=== PATIENT | male | born 1965 ===

== ENCOUNTER 2017-03-05 14:40 | Emergency (ER) | payer OTHER ==
[2017-03-05 14:45] VITALS: BMI 31.3
[2017-03-05 14:56] VITALS: TEMP 98.1
[2017-03-05 16:23] VITALS: BP 145/79
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
[2017-03-05 16:41] VITALS: PULSE 80; RESP 16; O2SAT 99
== END 2017-03-05 16:41 | disposition home or self-care (01) ==
LOC: ED 14:40
DX: T65.891A Toxic effect of other specified substances, accidental (unintentional), initial encounter (principal); T21.46XA Corrosion of unspecified degree of male genital region, initial encounter; Y93.89 Activity, other specified; Y92.89 Other specified places as the place of occurrence of the external cause

== ENCOUNTER 2018-06-30 22:05 | Emergency (ER) | payer SELFPAY ==
[2018-06-30 22:06] VITALS: BMI 31.3
[2018-06-30] MEDS ORDERED: Sodium Chloride 0.9% 1,000 ML IV STA (22:56)
[2018-06-30 22:57] VITALS: RESP 18
[2018-07-01 00:12] LABS: BASO # 0.06 K/mm3 (0.0-2.0); BASO % 0.7 % (0.0-3.0); EOS # 0.5 (0.0-0.7); EOS % 6.2 % (1.5-5.0); GRAN # 4.58 (1.4-6.5); GRAN % 52.9 % (50.0-68.0); HEMOGLOBIN 14.6 g/dL (14.0-18.0); LYMPH # 2.8 (1.2-3.4); LYMPH % 32.8 % (22.0-35.0); MEAN CELL VOLUME 87.4 fl (80.0-105.0); MEAN CORPUSCULAR HEMOGLOBIN 30.2 pg (25.0-35.0); MEAN CORPUSCULAR HGB CONC 34.6 g/dl (31.0-37.0); MEAN PLATELET VOLUME 11.2 fl (7.0-11.0); MONO # 0.6 (0.1-0.6); MONO % 7.4 % (1.0-6.0); RBC 4.83 10^6/uL (3.5-6.1); RED CELL DISTRIBUTION WIDTH 12.8 % (11.5-14.5); WHITE BLOOD COUNT 8.7 10^3/ul (4.5-11.0)
[2018-07-01 01:25] LABS: ALB/GLOB RATIO 1.2 (1.1-1.8); ALBUMIN 3.5 g/dL (3.0-4.8); BLOOD UREA NITROGEN 13 mg/dL (7-21); CALCIUM 8.3 mg/dL (8.4-10.5); GFR NON-AFRICAN AMERICAN > 60
[2018-07-01 02:02] VITALS: BP 141/70; PULSE 89; TEMP 98.8; O2SAT 98
[2018-07-01 02:25] LABS: ALT/SGPT 61 U/L (7-56); AST/SGOT 39 U/L (17-59)
--- NOTE | 2018-07-01 04:13 | ED PDOC ---
Arrival/HPI - General Historian: Patient - History of Present Illness Narrative History of Present Illness (Text): 07/01/18 04:09 53 y/o male with no significant PMH presents to ED c/o nausea after eating a herb called "booker" 20 minutes ago. Pt took the herb to try and clear his skin, but became nauseous after ingestion. Currently c/o "burning all over his body". Denies headache, vision changes, chest pain, SOB, weakness, numbness, syncope, diaphoresis, palpitations, rash. <Shanell Myers - Last Filed: 07/01/18 04:09> <Ravinder Del Valle - Last Filed: 07/03/18 06:24> - General Chief Complaint: Medical Clearance Time Seen by Provider: 06/30/18 22:53 Past Medical History - Provider Review Nursing Documentation Reviewed: Yes - Infectious Disease Hx of Infectious Diseases: None - Psychiatric Hx Psychophysiologic Disorder: No Hx Substance Use: No - Surgical History Hx Orthopedic Surgery: Yes (L SHOULDER) - Anesthesia Hx Anesthesia: Yes Hx Anesthesia Reactions: No <Shanell Myers - Last Filed: 07/01/18 04:09> Family/Social History - Physician Review Nursing Documentation Reviewed: Yes Family/Social History: No Known Family HX Smoking Status: Never Smoked Hx Alcohol Use: Yes Hx Substance Use: No <Shanell Myers - Last Filed: 07/01/18 04:09> Allergies/Home Meds <Shanell Myers - Last Filed: 07/01/18 04:09> <Ravinder Del Valle - Last Filed: 07/03/18 06:24> Allergies/Adverse Reactions: Allergies No Known Allergies Allergy (Verified 03/05/17 14:45) Review of Systems - Physician Review All systems were reviewed & negative as marked: Yes - Review of Systems Constitutional: Normal. absent: Fevers Eyes: Normal. absent: Vision Changes ENT: Normal Respiratory: Normal. absent: SOB, Cough Cardiovascular: Normal. absent: Chest Pain, Palpitations, Syncope Gastrointestinal: Nausea. absent: Abdominal Pain, Diarrhea, Vomiting Genitourinary Male: Normal Musculoskeletal: Normal Skin: Normal. absent: Rash Neurological: absent: Headache, Dizziness Endocrine: Normal Hemo/Lymphatic: Normal Psychiatric: Anxiety <Shanell Myers - Last Filed: 07/01/18 04:09> Physical Exam Vital Signs Reviewed: Yes Vital Signs Temp Pulse Resp BP Pulse Ox 07/01/18 02:02 98 07/01/18 02:01 89 18 141/70 98 06/30/18 22:56 98.8 F 80 18 155/74 H 97 Temperature: Afebrile Blood Pressure: Normal Pulse: Regular Respiratory Rate: Normal Appearance: Positive for: Well-Appearing, Non-Toxic, Comfortable Pain Distress: None Mental Status: Positive for: Alert and Oriented X 3 - Systems Exam Head: Present: Atraumatic, Normocephalic Pupils: Present: PERRL Extroacular Muscles: Present: EOMI Conjunctiva: Present: Normal Ears: Present: Normal Mouth: Present: Moist Mucous Membranes Pharnyx: Present: Normal Nose (Internal): Present: Normal Inspection Neck: Present: Normal Range of Motion Respiratory/Chest: Present: Clear to Auscultation, Good Air Exchange. No: Respiratory Distress, Accessory Muscle Use Cardiovascular: Present: Regular Rate and Rhythm Abdomen: Present: Normal Bowel Sounds. No: Tenderness, Distention, Peritoneal Signs Upper Extremity: Present: Normal Inspection, Normal ROM, NORMAL PULSES, Neurova scularly Intact. No: Cyanosis, Edema, Tenderness, Swelling, Temperature Abnormalties, Deformity Lower Extremity: Present: Normal Inspection, NORMAL PULSES, Normal ROM, Neurov ascularly Intact. No: Edema, Tenderness, Swelling, Deformity, Temperature Abnormalties Neurological: Present: GCS=15, CN II-XII Intact, Speech Normal <Shanell Myers - Last Filed: 07/01/18 04:09> Vital Signs Temp Pulse Resp BP Pulse Ox 07/01/18 02:02 98 07/01/18 02:01 89 18 141/70 98 06/30/18 22:56 98.8 F 80 18 155/74 H 97 <Ravinder Del Valle - Last Filed: 07/03/18 06:24> Medical Decision Making ED Course and Treatment: 07/01/18 04:11 Initial Plan: -CBC, CMP -Observe Impression: Ingestion of foreign substance, Anxiety Plan: Refrain from ingesting foreign substances Return if symptoms worsen - Lab Interpretations Lab Results: 06/30/18 23:39 07/01/18 01:06 Lab Results 07/01/18 01:06: Sodium 138, Potassium 3.7, Chloride 107, Carbon Dioxide 27, Anion Gap 8 L, BUN 13, Creatinine 1.0, Est GFR ( Amer) > 60, Est GFR (Non-Af Amer) > 60, Random Glucose 133 H, Calcium 8.3 L, Total Bilirubin 0.6, AST 39, ALT 61 H, Alkaline Phosphatase 87, Total Protein 6.2, Albumin 3.5, Globulin 2.8, Albumin/Globulin Ratio 1.2 06/30/18 23:39: WBC 8.7, RBC 4.83, Hgb 14.6, Hct 42.2, MCV 87.4, MCH 30.2, MCHC 34.6, RDW 12.8, Plt Count 255, MPV 11.2 H, Gran % 52.9, Lymph % (Auto) 32.8, [place] % (Auto) 7.4 H, Eos % (Auto) 6.2 H, Baso % (Auto) 0.7, Gran # 4.58, Lymph # (Auto) 2.8, [place] # (Auto) 0.6, Eos # (Auto) 0.5, Baso # (Auto) 0.06 I have reviewed the lab results: Yes Interpretation: All labs normal - Medication Orders Current Medication Orders: Discontinued Medications Sodium Chloride (Sodium Chloride 0.9%) 1,000 mls @ 999 mls/hr IV .Q1H1M STA Stop: 06/30/18 23:56 Last Admin: 06/30/18 23:35 Dose: 999 mls/hr eMAR Start Stop Document 06/30/18 23:35 SS (Rec: 06/30/18 23:36 SS [id number]) Intravenous Solution Start Date 06/30/18 Start Time 23:36 End Date 07/01/18 End time 00:36 Total Infusion Time 60 Ondansetron HCl (Zofran Odt) 8 mg PO STAT STA Stop: 06/30/18 22:55 Last Admin: 06/30/18 23:35 Dose: 8 mg <Shanell Myers - Last Filed: 07/01/18 04:09> ED Course and Treatment: 07/03/18 06:24 The documented history was done by the physician dietary worker. The documented physical exam was done by the physician dietary worker. The documented procedures were done by the physician dietary worker, I was available for consultation during the PA[employer] evaluation. The chart was reviewed by me, and I agree with the management and plan. - Lab Interpretations Lab Results: 06/30/18 23:39 07/01/18 01:06 Lab Results 07/01/18 01:06: Sodium 138, Potassium 3.7, Chloride 107, Carbon Dioxide 27, Anion Gap 8 L, BUN 13, Creatinine 1.0, Est GFR ( Amer) > 60, Est GFR (Non-Af Amer) > 60, Random Glucose 133 H, Calcium 8.3 L, Total Bilirubin 0.6, AST 39, ALT 61 H, Alkaline Phosphatase 87, Total Protein 6.2, Albumin 3.5, Globulin 2.8, Albumin/Globulin Ratio 1.2 06/30/18 23:39: WBC 8.7, RBC 4.83, Hgb 14.6, Hct 42.2, MCV 87.4, MCH 30.2, MCHC 34.6, RDW 12.8, Plt Count 255, MPV 11.2 H, Gran % 52.9, Lymph % (Auto) 32.8, [place] % (Auto) 7.4 H, Eos % (Auto) 6.2 H, Baso % (Auto) 0.7, Gran # 4.58, Lymph # (Auto) 2.8, [place] # (Auto) 0.6, Eos # (Auto) 0.5, Baso # (Auto) 0.06 - Medication Orders Current Medication Orders: Discontinued Medications Sodium Chloride (Sodium Chloride 0.9%) 1,000 mls @ 999 mls/hr IV .Q1H1M STA Stop: 06/30/18 23:56 Last Admin: 06/30/18 23:35 Dose: 999 mls/hr eMAR Start Stop Document 06/30/18 23:35 SS (Rec: 06/30/18 23:36 SS [id number]) Intravenous Solution Start Date 06/30/18 Start Time 23:36 End Date 07/01/18 End time 00:36 Total Infusion Time 60 Ondansetron HCl (Zofran Odt) 8 mg PO STAT STA Stop: 06/30/18 22:55 Last Admin: 06/30/18 23:35 Dose: 8 mg <Eligio,Ravinder - Last Filed: 07/03/18 06:24> Disposition/Present on Arrival - Present on Arrival Any Indicators Present on Arrival: No History of DVT/PE: No History of Uncontrolled Diabetes: No Urinary Catheter: No History of Decub. Ulcer: No History Surgical Site Infection Following: None - Disposition Have Diagnosis and Disposition been Completed?: Yes Disposition Time: 01:00 Patient Plan: Discharge <Shanell Myers - Last Filed: 07/01/18 04:09> <Ravinder Del Valle - Last Filed: 07/03/18 06:24> - Disposition Diagnosis: Anxiety, Use of herbal medication Disposition: HOME/ ROUTINE Condition: IMPROVED Discharge Instructions (ExitCare): Anxiety, Adult (DC) Additional Instructions: Increase fluids Refrain from ingestion of non-FDA approved herbal supplements Followup with primary doctor within 2 days Return to ED if symptoms worsen Referrals: Nnamdi Harmon [Primary Care Provider] - Follow up with primary Forms: [employer] (Thai), WORK NOTE
== END 2018-07-01 02:02 | disposition home or self-care (01) ==
LOC: ED 22:05
DX: F41.9 Anxiety disorder, unspecified (principal); F55.1 Abuse of herbal or folk remedies
CPT/HCPCS: 80053; 85025; 96360; 99283; J7030

== ENCOUNTER 2018-08-15 21:48 | Emergency (ER) | payer SELFPAY ==
[2018-08-15 21:48] VITALS: BMI 31.3
[2018-08-15 23:02] VITALS: RESP 18
[2018-08-15] MEDS ORDERED: DiphenhydrAMINE 50 mg/ml Inj IVP STA (23:05)
--- NOTE | 2018-08-15 23:08 | ED PDOC ---
Arrival/HPI - General Historian: Patient - History of Present Illness Narrative History of Present Illness (Text): 08/15/18 23:06 53 y/o male, no significant pmh, nkda, c/o generalized headache x 2 days. Pt. stated that he was having sex last night with , suddenly has headache, generalized, on and off, around the head, no change in vision, no night sweat, no rash, no other medical or psychological complaints. <Ananth Damon - Last Filed: 08/16/18 00:41> <Shanell Myers - Last Filed: 08/16/18 18:43> - General Chief Complaint: Headache Past Medical History - Provider Review Nursing Documentation Reviewed: Yes - Infectious Disease Hx of Infectious Diseases: None - Psychiatric Hx Psychophysiologic Disorder: No Hx Substance Use: No - Surgical History Hx Orthopedic Surgery: Yes (L SHOULDER) - Anesthesia Hx Anesthesia: Yes Hx Anesthesia Reactions: No <Ananth Damon - Last Filed: 08/16/18 00:41> Family/Social History - Physician Review Nursing Documentation Reviewed: Yes Family/Social History: Unknown Family HX Smoking Status: Never Smoked Hx Alcohol Use: Yes Hx Substance Use: No <Ananth Damon - Last Filed: 08/16/18 00:41> Allergies/Home Meds <Ananth Damon - Last Filed: 08/16/18 00:41> <Shanell Myers - Last Filed: 08/16/18 18:43> Allergies/Adverse Reactions: Allergies No Known Allergies Allergy (Verified 03/05/17 14:45) Review of Systems - Review of Systems Constitutional: absent: Fatigue, Fevers Eyes: absent: Vision Changes ENT: absent: Hearing Changes Respiratory: absent: SOB, Cough Cardiovascular: absent: Chest Pain Gastrointestinal: absent: Abdominal Pain, Diarrhea, Nausea, Vomiting Neurological: Headache. absent: Dizziness Endocrine: absent: Diaphoresis Psychiatric: absent: Anxiety, Depression <Ananth Damon - Last Filed: 08/16/18 00:41> Physical Exam Vital Signs Reviewed: Yes Vital Signs Pulse Resp BP Pulse Ox 08/15/18 23:01 77 18 142/90 94 L Temperature: Afebrile Blood Pressure: Normal Pulse: Regular Respiratory Rate: Normal Appearance: Positive for: Well-Appearing, Non-Toxic Pain Distress: Moderate Mental Status: Positive for: Alert and Oriented X 3 - Systems Exam Head: Present: Atraumatic, Normocephalic, Other (no temporal artery tenderness). No: Tenderness, Contusion, Swelling, Ecchymosis, Abrasion, Laceration Pupils: Present: PERRL Extroacular Muscles: Present: EOMI Conjunctiva: Present: Normal Mouth: Present: Moist Mucous Membranes Neck: Present: Normal Range of Motion Respiratory/Chest: Present: Clear to Auscultation, Good Air Exchange. No: Respiratory Distress, Accessory Muscle Use Cardiovascular: Present: Regular Rate and Rhythm, Normal S1, S2. No: Murmurs Abdomen: No: Tenderness, Distention, Peritoneal Signs Back: Present: Normal Inspection Upper Extremity: Present: Normal Inspection. No: Cyanosis, Edema Lower Extremity: Present: Normal Inspection. No: Edema Neurological: Present: GCS=15, CN II-XII Intact, Speech Normal, Motor Func Grossly Intact, Gait Normal, Memory Normal, Other (no drift) Skin: Present: Warm, Dry, Normal Color. No: Rashes Psychiatric: Present: Alert, Oriented x 3, Normal Insight, Normal Concentration <Ananth Damon - Last Filed: 08/16/18 00:41> Vital Signs Temp Pulse Resp BP Pulse Ox 08/16/18 00:50 98.0 F 67 18 111/67 97 08/15/18 23:01 77 18 142/90 94 L <Shanell Myers - Last Filed: 08/16/18 18:43> Medical Decision Making ED Course and Treatment: 08/15/18 23:07 -Labs -CT head -IVF/benadryl/tylenol/reglan -Observe and reassess 08/16/18 00:43 -CT head show Normal unenhanced CT scan of the brain. -Labs show no acute findings -Mg show no acute findings -Pt. feels completely relief, slept in the ER, no focal neurological deficits, will discharge home. -Discharge home naproxen, bed rest, follow up with your own pmd and neurologist within2 days, return to the ER or any new or worsening signs or symptoms. - RAD Interpretation Radiology Orders: 08/15/18 23:05 HEAD W/O CONTRAST [CT] Stat CT SCAN OF THE BRAIN WITHOUT IV CONTRAST CLINICAL INDICATION: Headaches. TECHNIQUE: Axial and reformatted sagittal and coronal images of the brain obtained without IV contrast administration. Normal size of the ventricles and extra-axial spaces for the patient's age. Normal white matter tracts of the supratentorial brain. Normal basal ganglia and thalami. Normal brainstem. Normal cerebellum. There is no demonstrated extra-axial, intraparenchymal, or intraventricular hemorrhage. There are no findings of an acute ischemic infarction. Normal calvarium. There is no demonstrated fracture. Normal soft tissue structures. Normal visualized paranasal sinuses. IMPRESSION: Normal unenhanced CT scan of the brain. Electronically signed on Aug 16, 2018 12:13:44 AM EST by: Suraj Jacob M.D., Certified by ABR, MSK, Neuroradiology Apartment Coordinator: Radiologist <Ananth Damon - Last Filed: 08/16/18 00:41> - Lab Interpretations Lab Results: 08/15/18 23:25 08/15/18 23:25 Lab Results 08/15/18 23:25: WBC 9.2, RBC 4.94, Hgb 15.0, Hct 43.2, MCV 87.4, MCH 30.4, MCHC 34.7, RDW 13.0, Plt Count 229, MPV 11.6 H, Gran % 62.0, Lymph % (Auto) 28.4, [place] % (Auto) 5.8, Eos % (Auto) 3.1, Baso % (Auto) 0.7, Gran # 5.70, Lymph # (Auto) 2.6, [place] # (Auto) 0.5, Eos # (Auto) 0.3, Baso # (Auto) 0.06 08/15/18 23:25: Sodium 138, Potassium 3.9, Chloride 101, Carbon Dioxide 28, Anion Gap 13, BUN 17, Creatinine 1.3, Est GFR ( Amer) > 60, Est GFR (Non- Af Amer) 58, Random Glucose 111 H, Calcium 9.1, Total Bilirubin 0.9, AST 45, ALT 71 H, Alkaline Phosphatase 78, Total Protein 7.5, Albumin 4.3, Globulin 3.2, Albumin/Globulin Ratio 1.4 - RAD Interpretation Radiology Orders: 08/15/18 23:05 HEAD W/O CONTRAST [CT] Stat - Medication Orders Current Medication Orders: Discontinued Medications Acetaminophen (Tylenol 325mg Tab) 650 mg PO STAT STA Stop: 08/15/18 23:06 Last Admin: 08/15/18 23:30 Dose: 650 mg MAR Pain/Vitals Document 08/15/18 23:30 JOL (Rec: 08/15/18 23:30 [id number] Pain Reassessment Is This A Pain ReAssessment? No Sleep Is patient sleeping during reassessment? No Presence of Pain Presence of Pain Yes Pain Scale Used Protocol: PSCALES Pain Scale Used Numeric Location Pain Location Body Dress Cutter Intensity 8 Pain Behavior Moaning Diphenhydramine HCl (Benadryl) 50 mg IVP STAT STA Stop: 08/15/18 23:06 Last Admin: 08/15/18 23:31 Dose: 50 mg IVP Administration Document 08/15/18 23:31 JOL (Rec: 08/15/18 23:31 [id number]) Charges for Administration # of IVP Administrations 1 Metoclopramide HCl (Reglan) 10 mg IVP STAT STA Stop: 08/15/18 23:06 Last Admin: 08/15/18 23:30 Dose: 10 mg IVP Administration Document 08/15/18 23:30 JOL (Rec: 08/15/18 23:30 [id number] Charges for Administration # of IVP Administrations 1 <Shanell Myers - Last Filed: 08/16/18 18:43> - PA / COLORER / Resident Statement / has reviewed & agrees with the documentation as recorded. <Ananth Damon - Last Filed: 08/16/18 00:41> Disposition/Present on Arrival - Present on Arrival Any Indicators Present on Arrival: No History of DVT/PE: No History of Uncontrolled Diabetes: No Urinary Catheter: No History of Decub. Ulcer: No History Surgical Site Infection Following: None - Disposition Have Diagnosis and Disposition been Completed?: Yes Disposition Time: 00:45 Patient Plan: Discharge <Ananth Damon - Last Filed: 08/16/18 00:41> <Shanell Myers - Last Filed: 08/16/18 18:43> - Disposition Diagnosis: Headache Disposition: HOME/ ROUTINE Condition: IMPROVED Additional Instructions: Discharge home naproxen, bed rest, follow up with your own pmd and neurologist within2 days, return to the ER or any new or worsening signs or symptoms. Prescriptions: Naproxen 500 mg PO BID PRN #20 tablet PRN Reason: Other Referrals: [facility] Agu[facility] Garcia, [Primary Care Provider] - Follow up with primary Piotr Rosado MD [Staff Provider] - Follow up with primary [facility] [Outside] - Follow up with primary Forms: [employer] ([place]ron[employer]), WORK NOTE Addendum Addendum: 08/16/18 18:39 1st call to patient unsuccessful, patient needs 2nd call. Patient's primary doctor, Dr. Vora made aware of head CT findings. Recommends patient to followup in his office on Saturday. Updated Head CT Official Read: FINDINGS: HEMORRHAGE: No intracranial hemorrhage. BRAIN: There is a small rounded area of low attenuation in the right frontal subcortical white matter best seen on axial series 4 image # 33 through 35 that is of uncertain etiology. While this is likely incidental and could represent a small subcortical chronic ischemic focus, other etiologies such as sequela of old trauma, migraine headaches post infectious/inflammatory or atypical demyelinating disease process not excluded.. Note that a 2nd smaller focus slightly more anteriorly and inferiorly located in the right frontal subcortical white matter may be present as well... Clinical correlation and follow-up MRI recommended. VENTRICLES: No obstructive hydrocephalus. CALVARIUM: Calvarium intact. PARANASAL SINUSES: Unremarkable as visualized. No significant inflammatory changes. MASTOID AIR CELLS: Unremarkable as visualized. No inflammatory changes. OTHER FINDINGS: None. IMPRESSION: There is a small nonspecific focal area of low attenuation right frontal subcortical white matter of uncertain etiology detailed above. Note that a 2nd smaller focus slightly more anteriorly and inferiorly located in the right frontal subcortical white matter may be present as well Clinical correlation and follow-up MRI recommended. <Shanell Myers - Last Filed: 08/16/18 18:43>
[2018-08-16 00:03] LABS: MEAN CELL VOLUME 87.4 fl (80.0-105.0); RBC 4.94 10^6/uL (3.5-6.1); WHITE BLOOD COUNT 9.2 10^3/uL (4.5-11.0)
[2018-08-16 00:04] LABS: BASO % 0.7 % (0.0-3.0); EOS % 3.1 % (1.5-5.0); GRAN # 5.7 (1.4-6.5); LYMPH % 28.4 % (22.0-35.0); MEAN CORPUSCULAR HEMOGLOBIN 30.4 pg (25.0-35.0); MEAN CORPUSCULAR HGB CONC 34.7 g/dl (31.0-37.0); MEAN PLATELET VOLUME 11.6 fl (7.0-11.0); MONO % 5.8 % (1.0-6.0)
[2018-08-16 00:05] LABS: BASO # 0.06 K/mm3 (0.0-2.0); EOS # 0.3 (0.0-0.7); LYMPH # 2.6 (1.2-3.4); MONO # 0.5 (0.1-0.6)
[2018-08-16 00:10] LABS: ALB/GLOB RATIO 1.4 (1.1-1.8); ALBUMIN 4.3 g/dL (3.0-4.8); ALT/SGPT 71 U/L (7-56); AST/SGOT 45 U/L (17-59); BLOOD UREA NITROGEN 17 mg/dL (7-21); CALCIUM 9.1 mg/dL (8.4-10.5); GFR NON-AFRICAN AMERICAN 58
[2018-08-16 00:51] VITALS: BP 111/67; PULSE 67; TEMP 98; O2SAT 97
--- NOTE | 2018-08-16 10:05 | CT ---
Date of service: 08/15/2018 PROCEDURE: CT HEAD WITHOUT CONTRAST. HISTORY: headache x 2 days. COMPARISON: None available. TECHNIQUE: Axial computed tomography images were obtained through the head/brain without intravenous contrast. Radiation dose: Total exam DLP = 890.7 mGy-cm. This CT exam was performed using one or more of the following dose reduction techniques: Automated exposure control, adjustment of the mA and/or kV according to patient size, and/or use of iterative reconstruction technique. FINDINGS: HEMORRHAGE: No intracranial hemorrhage. BRAIN: There is a small rounded area of low attenuation in the right frontal subcortical white matter best seen on axial series 4 image # 33 through 35 that is of uncertain etiology. While this is likely incidental and could represent a small subcortical chronic ischemic focus, other etiologies such as sequela of old trauma, migraine headaches post infectious/inflammatory or atypical demyelinating disease process not excluded.. Note that a 2nd smaller focus slightly more anteriorly and inferiorly located in the right frontal subcortical white matter may be present as well... Clinical correlation and follow-up MRI recommended. VENTRICLES: No obstructive hydrocephalus. CALVARIUM: Calvarium intact. PARANASAL SINUSES: Unremarkable as visualized. No significant inflammatory changes. MASTOID AIR CELLS: Unremarkable as visualized. No inflammatory changes. OTHER FINDINGS: None. IMPRESSION: There is a small nonspecific focal area of low attenuation right frontal subcortical white matter of uncertain etiology detailed above. Note that a 2nd smaller focus slightly more anteriorly and inferiorly located in the right frontal subcortical white matter may be present as well Clinical correlation and follow-up MRI recommended. Note this report was placed in PA review folder follow up.
== END 2018-08-16 01:05 | disposition home or self-care (01) ==
LOC: ED 21:48
DX: R51 Headache (principal)
CPT/HCPCS: 70450; 80053; 85025; 96374; 96375; 99285; J1200; J2765